=== PATIENT | female | born 1935 | race Hispanic/Latino ===

== ENCOUNTER 2017-02-07 11:33 | Emergency (ER) | payer MEDICARE, OTHER ==
[2017-02-07] MEDS ORDERED: NAPROXEN SODIUM 550 MG TABLET PO ONE (11:47)
[2017-02-07] MEDS ORDERED: NAPROXEN SODIUM 550 MG TABLET ONE (11:50)
--- NOTE | 2017-02-07 11:53 | ERNOTE ---
Upper Extremity HPI - Narrative Date of Service: 02/07/17 - General Extremities Pain Location: wrist: right, hand: right Time Seen by Provider: 02/07/17 11:42 Source: patient Exam Limitations: no limitations - Immun/Allergies/Home Medications Immunizations: IMMUNIZATION HX Immunizations Up to Date unknown History of Influenza Vaccine No Hx Pneumococcal Vaccination Yes Allergies/Adverse Reactions: Allergies Allergy/AdvReac Type Severity Reaction Status Date / Time No Known Allergies Allergy Verified 02/07/17 11:41 Home Medications: HOME MEDICATIONS Allopurinol [Zyloprim] 300 mg PO DAILY 04/23/15 [Last Taken Unknown] Hydrochlorothiazide [Hydrodiuril] 25 mg PO DAILY 04/23/15 [Last Taken Unknown] Quinapril HCl [Accupril] 40 mg PO DAILY 04/23/15 [Last Taken Unknown] Albuterol Sulfate 2.5 mg IH Q4H PRN #40 vial.neb 04/20/16 [Last Taken Unknown] Aspirin [Aspirin Enteric Coated] 81 mg PO DAILY 04/20/16 [Last Taken Unknown] oxyCODONE HCL/ACETAMINOPHEN [Percocet 5 MG/325 MG] 1 tab PO Q4H PRN #10 tab [Last Taken Unknown] - History of Present Illness Narrative: Pt. comes in with c/o R hand a wrist pain after she tripped over a curb and used her R hand to break her fall. Pt. denies any other pain or hitting her head in fall. Pt. denies any SOB, CP, NVD, fever, numbness, tingling, or recent illness. Pt. states that movement worsens the pain and nothing alleviates it despite taking Tylenol. Review of Systems - Review of Systems Constitutional: Present: no symptoms reported. Absent: recent illness, fever, chills, weakness, fatigue, malaise EYE: Present: no symptoms reported ENT: Present: no symptoms reported Respiratory: Present: no symptoms reported. Absent: shortness of breath, cough , wheezing Cardiology: Present: no symptoms reported. Absent: chest pain, palpitations, edema Gastrointestinal/Abdominal: Present: no symptoms reported Genitourinary: Present: no symptoms reported Musculoskeletal: Present: joint pain - R wrist and hand. Absent: back pain Skin: Present: no symptoms reported. Absent: rash, change in color Neurological: Present: no symptoms reported. Absent: headache, dizziness/light- headedness, numbness, tingling All Other Systems: All systems neg except as marked - Patient's Past Medical History Patient History - Medical: Osteoarthritis Patient History - Cardiac/Respiratory: Hypertension Patient History - Cancer: No Hx of Cancer Patient History - Surgical Procedures: Appendectomy, Cholecystectomy, Hysterectomy, Total Knee Replacement, Other Patient History - Other: None - Family History Mother Family History - Medical: Family History - Cardiac/Respiratory: CHF dather Family History - Medical: - Social History Living Situations: home Abuse History: No History of abuse Psych History: No pertinent hx Alcohol Use: none Drug Use: none - Immunizations Immunizations Up to Date: - unknown Hx Pneumococcal Vaccination: Yes History of Influenza Vaccine: No Physical Exam - Physical Exam General Appearance: Present: wd/wn, alert, no apparent distress Head Exam: Present: normal inspection, no evidence of injury Eye Exam: Normal inspection: bilateral Respiratory: Present: no respiratory distress, normal breath sounds, no accessory muscle use, chest nontender, lungs clear. Absent: crackles, rales, rhonchi, stridor, wheezing Cardiovascular/Chest: Present: regular rate, rhythm, no murmur, normal peripheral pulses Back Exam: Present: normal inspection Extremity Exam: Present: bony tenderness - prox metacarpals and distal ulna, joint swelling - R hand and wrist Neurological Exam: Present: alert, oriented, normal mood/affect, no motor/ sensory deficits, preschool principal II-XII nml as tested, normal cerebellar test Skin Exam: Present: normal color, warm/dry. Absent: pallor, skin rash ED Progress - Date and Time Seen: Date and Time: 02/07/17 13:[address] Haines and he recommends splinting pt. and having her follow up in the clinic on friday. - Vital Signs Patient's Vital Signs:: I have reviewed the patient's vital signs. Vital Signs: Vital Signs 02/07/17 11:38 Temperature 36.2 C L Pulse Rate 85 Respiratory 12 Rate Blood Pressure 160/82 O2 Sat by Pulse 95 Oximetry - X-Ray X-Ray #1 X-Ray: wrist Interpretation: Reviewed by me X-ray Comments: spiral fracture displaced through the shaft of the R fourth metacarpal - Progress/Reassessment Chief Complaint: Upper Extremity Injury/Problem Progress:: Improved Departure Clinical Impression: Hand fracture, right Qualifiers: Encounter type: initial encounter Fracture type: closed Qualified Code(s): S62.91XA - Unspecified fracture of right wrist and hand, initial encounter for closed fracture - Departure Disposition: Home self-care Condition: Good Instructions: Metacarpal Fracture Additional Instructions: Please follow up with Dr Haines as scheduled Referrals: Fahad East MD [Primary Care Provider] - Tam Haines MD [Staff Physician] - Prescriptions: oxyCODONE HCL/ACETAMINOPHEN [Percocet 5 MG/325 MG] 1 tab PO Q4H PRN #10 tab PRN Reason: Pain
[2017-02-07] MEDS ORDERED: oxyCODONE HCL/ACETAMINOPHEN 1 TAB TABLET PO ONE (13:38)
[2017-02-07] MEDS ORDERED: oxyCODONE HCL/ACETAMINOPHEN 1 TAB TABLET ONE (13:50)
[2017-02-07 14:11] VITALS: BP 128/49
== END 2017-02-07 14:11 | disposition home or self-care (01) ==
LOC: ER 11:33
PROC: 2W3CX1Z Immobilization of Right Lower Arm using Splint (ICD-10-PCS; principal; 2017-02-07)
DX: S62.91XA Unspecified fracture of right hand, initial encounter for closed fracture (principal); W18.09XA Striking against other object with subsequent fall, initial encounter; Y92.410 Unspecified street and highway as the place of occurrence of the external cause; M19.90 Unspecified osteoarthritis, unspecified site; I10 Essential (primary) hypertension